=== PATIENT | male | born 1960 | race African-American/Black ===

== ENCOUNTER 2017-12-18 20:55 | Emergency (ER) | payer OTHER ==
[~2017-12-18] VITALS: Ht 175.3 cm; Wt 72.0 kg
[2017-12-18 23:08] VITALS: BP 125/72
== END 2017-12-18 23:33 | disposition home or self-care (01) ==
LOC: EMS 20:58
DX: L97.519 Non-pressure chronic ulcer of other part of right foot with unspecified severity (principal)
CPT/HCPCS: 99283